=== PATIENT | female | born 1975 | race Caucasian/White ===

== ENCOUNTER 2018-03-20 14:30 | Emergency (ER) | payer BC ==
[2018-03-20 14:42] VITALS: BP 140/95; PULSE 72; TEMP 97.8
--- NOTE | 2018-03-20 15:06 | PDOC ---
Attending Attestation - Resident Resident Name: Tracey Montesinos - ED Attending Attestation I have performed the following: I have examined & evaluated the patient, The case was reviewed & discussed with the resident, I agree w/resident's findings & plan, Exceptions are as noted - HPI HPI: 03/20/18 14:54 42y F yusuf presents with complaint of neck/upper back pain. Pt notes that on friday,she woke up feeling well, then she turned her neck to her child, and felt mild discomfrot, feeling like she had a stiff neck/slept wrong. She felt mild discmofort the remainder of the day and pain seemed to get worse over the next few days - went to urgent care and got rx for maproxen and flexeril and has nothad any significant improvment. pt notes the pain worsens in the upper back towards the direction she is looking, more limited movement on the left. pt denies any recent trauma/falls denies any numbness/tingling/weakness, vision changes, urinary or bowel incontinence, midline neck pain, lower back pain on exam the pt has mild b/l trapezius, and medial to scapula b/l no focal midline bony tenderness, no ttp on anterior neck/strap muscles, pt able to range her neck on passive ROM without discomfort suspect muscle strain/spasm will give pt tylenol and valium will reassess - Physicial Exam PE: 03/20/18 15:43 see above - Medical Decision Making 03/20/18 16:46 pt feeling improved able to range her neck with minmal discomfort will dc the pt with pmd fu and to continue her medications I discussed the physical exam findings, ancillary test results and final diagnoses with the patient. I answered all of the patient's questions. The patient was satisfied with the care received and felt comfortable with the discharge plan and treatment plan. The patient will call their primary care physician within 24 hours to arrange follow-up and will return to the Emergency Department with any new, persistent or worsening symptoms.
[2018-03-20] MEDS ORDERED: diazePAM 2 MG TABLET PO ONE (15:24)
[2018-03-20] MEDS ORDERED: ACETAMINOPHEN 500 MG TABLET (FP) PO ONE (15:24)
--- NOTE | 2018-03-20 15:24 | PDOC ---
History of Present Illness - General Chief Complaint: Pain Stated Complaint: NECK PAIN Time Seen by Provider: 03/20/18 14:42 - History of Present Illness Initial Comments: Unique Capps is an otherwise healthy 42yo woman who presents with bilateral posterior neck and shoulder pain for the past 9 days. She reports that a week ago Friday, she started having some neck stiffness and pain. Initially, she thought that she had just "slept wrong" and tried heat packs at home. When the pain did not improve, she went to urgent care a week ago on Friday. She was evaluated and told that she had muscle spasms. She was sent home with naproxen, flexeril, and instructions to stretch her neck muscles. Since that time, she has taken flexeril 5mg and naproxen 500mg twice daily without improvement of her symptoms. She thinks they may have worsened somehwat over the past week. Today, Ms Capps reports 8/10, sharp pain in her bilateral posterior neck, lateral to midline, that radiates locally to her shoulders and upper back with head movements. She has had very limited ROM in her neck due to pain, though she does say that she is able to move her head through the entire full ROM if she moves very slowly. She denies any associated symptoms including headache, fever/chills, numbness or tingling in her extremities, focal weakness, or any neurological symptoms. The pain does not radiate into her arms or lower back. She did not have any trauma prior to the pain starting and has never experienced similar pain before. Past History - Past Medical History Allergies/Adverse Reactions: Allergies Allergy/AdvReac Type Severity Reaction Status Date / Time erythromycin base Allergy Severe Vomiting Verified 03/20/18 14:33 [Erythromycin Base] Home Medications: Ambulatory Orders No Home Medications 0 dose .ROUTE UTDICT 10/15/12 Cyclobenzaprine HCl [Flexeril -] 10 mg PO TID PRN 03/20/18 Naproxen [Naprosyn] 500 mg PO BID PRN 03/20/18 Anemia: No Asthma: No Cancer: No Cardiac Disorders: No CVA: No COPD: No CHF: No Dementia: No Diabetes: No GI Disorders: Yes (EPIGASTRIC PAIN) Disorders: No HTN: No Hypercholesterolemia: No Liver Disease: No Seizures: No Thyroid Disease: No - Surgical History Abdominal Surgery: Yes Appendectomy: No Cardiac Surgery: No Cholecystectomy: No Lung Surgery: No Neurologic Surgery: No Orthopedic Surgery: No - Suicide/Smoking/Psychosocial Hx Smoking History: Former smoker Have you smoked in the past 12 months: No If you are a former smoker, when did you quit?: 2005 Information on smoking cessation initiated: No Hx Alcohol Use: No Drug/Substance Use Hx: No Substance Use Type: None Review of Systems - Review of Systems Comments:: General: No fevers, no chills, no weight or appetite change, no malaise HEENT: No changes in vision, no changes in hearing, no congestion, no sore throat CV: No chest pain, no palpitations, no LE edema Pulm: No SOB, no cough, no wheezing GI: No nausea or vomiting, no change in bowel habits, no melena : No frequency, no urgency, no dysuria Musc: See HPI. No joint swelling, no recent injury Skin: No rash, no lesions, no erythema Endo: No excessive thirst, no heat/cold intolerance Heme: No unusual bruising or bleeding, no swollen glands Neuro: No syncope, no numbness/tingling, no focal weakness Vasc: No claudication Psych: No recent change in mood, no SI or HI *Physical Exam - Vital Signs Last Vital Signs Temp Pulse Resp BP Pulse Ox 97.8 F 72 16 140/95 100 03/20/18 14:31 03/20/18 14:31 03/20/18 14:31 03/20/18 14:31 03/20/18 14:31 - Physical Exam Comments: General: Comfortable, no acute distress HEENT: PERRL, EOMI, MMM, voice normal, no LAD. Active neck ROM severely limited by pain; nearly full passive ROM. No midline cervical spine tenderness. Nontender to palpation along posterior muscles in neck or medial shoulder. No erythema or edema noted. No fluctuance, induration, or crepitus. Cards: RRR, no murmur appreciated Pulm: Comfortable on room air, clear to auscultation bilaterally Abd: Soft, nontender, nondistended : No CVA tenderness Ext: Atraumatic. No LE edema. ROM intact. Strength 5/5 and equal bilaterally Vasc: Extremities WWP. Palpable radial and pedal pulses bilaterally Neuro: A&Ox3, CN grossly intact, normal speech, motor/sensory grossly intact and symmetric Psych: Mood appropriate to situation Medical Decision Making - Medical Decision Making 03/20/18 15:34 Unique Capps is an otherwise healthy 42yo woman who presents with 9 days of posterior neck pain, especially with movement, that has not improved with NSAIDS and a muscle relaxant prescribed at urgent care last week. - No neurologic symptoms such as focal weakness, numbness, tingling - very low suspicion for neurologic cause of symptoms - No infections symptoms including fever, chills, or headache - very low concern for meningitis or infectious process - No trauma or injury that would suggest spinal or bony pathology - Improvement in passive vs active ROM strongly suggests muscular pain or spasms - Discussed with patient. Will give 1g acetaminophen and 2mg diazepam in ED. Unable to give NSAIDS as Ms Capps took naproxen at home at ~10am. - Will re-evaluate after medications are given to assess for improvement in symptoms 03/20/18 16:31 - Pain and ROM both significantly improved after receiving acetaminophen and diazepam - Will continue to monitor in the ED with plan to discharge home once Ms Capps can safely drive home - Discussed this plan with Ms Capps, and she agrees. Advised to follow up with her primary physician early next week. *DC/Admit/Observation/Transfer Diagnosis at time of Disposition: Musculoskeletal neck pain - Discharge Dispostion Disposition: HOME Condition at time of disposition: Good - Referrals Referrals: Donte Jung [Primary Care Provider] - - Patient Instructions Printed Discharge Instructions: DI for Neck Pain Additional Instructions: Discharge Instructions: - You were seen in the ED for neck pain that has not improved for the past week. Your physical exam suggested muscle pain, and your neck pain and stiffness improved with a muscle relaxant and pain reliever. - You may continue to take your previously prescribed muscle relaxant as needed and as prescribed. Be aware that this medication can cause sleepiness and impair your ability to drive. It is recommended that you take the higher written dose (2 tablets, twice per day) as you did not have relief of your symptoms with only one tablet. - You can take ibuprofen, acetaminophen, or your previously prescribed naproxen for pain. Do not combine these medications, and take as directed on the bottle - It is recommended that you follow up with your primary physician within the next week - Please seek medical attention if you develop neurological symptoms such as numbness or tingling, weakness on one side of your body, facial droop, abnormal speech. You should also be seen if you have severe headache, especially if you have fever of 101 or higher or shaking chills. - Post Discharge Activity
[2018-03-20] MEDS ORDERED: ACETAMINOPHEN 500 MG TABLET (FP) ONE (15:26)
[2018-03-20] MEDS ORDERED: diazePAM 2 MG TABLET ONE (15:26)
== END 2018-03-20 16:56 | disposition home or self-care (01) ==
LOC: FER 14:30
DX: M79.1 Myalgia (principal); R10.13 Epigastric pain; Z87.891 Personal history of nicotine dependence
CPT/HCPCS: 99282-25